=== PATIENT | female | born 1980 | race African-American/Black ===

== ENCOUNTER 2016-03-21 21:03 | Emergency (ER) | payer OTHER ==
[~2016-03-21] VITALS: Ht 152.4 cm; Wt 63.5 kg
[~2016-03-21 21:03] MED LIST: AZIT250T6 PO; BENZ200C39 PO
[2016-03-21 21:38] VITALS: BP 156/80
[2016-03-21] MEDS ORDERED: ACETAMINOPHEN 500 MG TABLET PO ONE (22:00)
[2016-03-21] MEDS ORDERED: AMOX1TAB61 PO (22:43)
[2016-03-21] MEDS ORDERED: KETO5DRO3 EACHEYE (22:43)
[2016-03-21] MEDS ORDERED: LORA1TAB47 PO (22:43)
--- NOTE | 2016-03-21 22:43 | PHYS DOC ---
Past Medical History Past Medical History: Bronchitis Additional Past Medical Histor: GALLSTONES, chronic back pain Past Surgical History: Alcohol Use: None Drug Use: None Adult General Chief Complaint Chief Complaint: Congestion HPI HPI Patient is a 35 year old female who presents with bilateral ear pain, nasal congestion, sinus headache, bilateral eye itching, for the last 1 week. Patient denies any fever. Review of Systems Review of Systems Constitutional: See history of present illness Eyes: eye itching HENT: Nasal congestion Respiratory: Denies cough or shortness of breath [] Cardiovascular: No additional information not addressed in HPI [] GI: Denies abdominal pain, nausea, vomiting, bloody stools or diarrhea [] : Denies dysuria or hematuria [] Musculoskeletal: Denies back pain or joint pain [] Integument: Denies rash or skin lesions [] Neurologic: Frontal headache Endocrine: Denies polyuria or polydipsia [] Current Medications Current Medications Current Medications Medications (Trade) Dose Ordered Sig/Alfie Start Time Stop Time Status Last Admin Dose Admin Acetaminophen (Tylenol) 1,000 mg 1X ONCE 03/21/16 22:00 03/21/16 22:01 Cancel Allergies Allergies Allergies Coded Allergies Type Severity Reaction Last Updated Verified Sulfa (Sulfonamide Antibiotics) Adverse Reaction Mild nausea and vomiting 09/07 Yes Physical Exam Physical Exam Constitutional: Well developed, well nourished, no acute distress, non-toxic appearance. [] HENT: Normocephalic, atraumatic, bilateral external ears normal, oropharynx moist, no oral exudates, Patient sounds congested nasally. Bilateral nasal turbinates are boggy and erythematous. Mild frontal and maxillary sinus tenderness. Bilateral TM with small amount of clear fluid no erythema Eyes: PERRLA, EOMI, bilateral conjunctiva are mildly injected Neck: Normal range of motion, no tenderness, supple, no stridor. [] Cardiovascular:Heart rate regular rhythm, no murmur [] Lungs & Thorax: Bilateral breath sounds clear to auscultation [] Abdomen: Bowel sounds normal, soft, no tenderness, no masses, no pulsatile masses. [] Skin: Warm, dry, no erythema, no rash. [] Back: No tenderness, no CVA tenderness. [] Extremities: No tenderness, no cyanosis, no clubbing, ROM intact, no edema. [] Neurologic: Alert and oriented X 3, normal motor function, normal sensory function, no focal deficits noted. [] Psychologic: Affect normal, judgement normal, mood normal. [] Current Patient Data Vital Signs Vital Signs Date Time Temp Pulse Resp B/P Pulse Ox O2 Delivery O2 Flow Rate FiO2 03/21/16 21:38 98.6 80 16 100 Room Air 98.6 EKG EKG [] Radiology/Procedures Radiology/Procedures [] Course & Med Decision Making Course & Med Decision Making Pertinent Labs and Imaging studies reviewed. (See chart for details) Patient is in the ED with acute sinusitis, allergic conjunctivitis. Discharged with Augmentin for 10 days, discharged with zaditor for allergic conjunctivitis. Tylenol/Motrin recommended for pain or fever. Alcz-[id number]-[id number] decongestants also recommended. Follow-up with PCP in one week. Dragon Disclaimer Dragon Disclaimer This electronic medical record was generated, in whole or in part, using a voice recognition dictation system. Departure Departure Impression: Primary Impression: Acute sinusitis Additional Impression: Allergic conjunctivitis Disposition: 01 HOME, SELF-CARE Condition: STABLE Referrals: NO PCP (PCP) Follow-up with your own doctor in one week Patient Instructions: Allergic Conjunctivitis, Sinusitis Additional Instructions: You were seen for acute sinusitis and allergic conjunctivitis. Take over-the- counter decongestant especially the ones for allergies like Claritin-D. Complete your prescription antibiotics. Use the eyedrops prescription as prescribed. Follow-up with your own doctor in one week. Scripts Loratadine/Pseudoephedrine (Claritin-D 12 Hour Tablet)1 Each Tab.er.12h1 Tab PO BID #20 TAB Prov:MARILY FINLEY [employer] SUPERINTENDENT 03/21/16 Ketotifen Fumarate (Zaditor)5 Ml Drops1 Drop EACHEYE BID #5 ML Prov:MUTMARILY JOSHI WOODS SUPERINTENDENT 03/21/16 Amoxicillin/Potassium Clav (Augmentin 875-125 Tablet)1 Each Tablet1 Tab PO BID # 20 TAB Prov:MARILY FINLEY [employer] SUPERINTENDENT 03/21/16 Problem Qualifiers Primary Impression: Acute sinusitis Sinusitis location: unspecified location Recurrence: non-recurrent Qualified Code: J01.90 - Acute sinusitis, unspecified Additional Impression: Allergic conjunctivitis Laterality: bilateral Qualified Code: H10.13 - Acute atopic conjunctivitis, bilateral MUTUNGMARILY Marie WO[employer]S SUPERINTENDENT Mar 21, 2016 22:43
== END 2016-03-21 22:50 | disposition home or self-care (01) ==
LOC: ER 21:03
DX: J01.90 Acute sinusitis, unspecified (principal); H10.13 Acute atopic conjunctivitis, bilateral; G89.29 Other chronic pain; Z88.2 Allergy status to sulfonamides
CPT/HCPCS: 99283

== ENCOUNTER 2016-05-02 14:48 | Emergency (ER) | payer OTHER ==
[~2016-05-02] VITALS: Ht 152.4 cm; Wt 61.2 kg
[~2016-05-02 14:48] MED LIST changes: +AMOX1TAB61 PO; +KETO5DRO3 EACHEYE; +LORA1TAB47 PO
[2016-05-02 15:28] VITALS: BP 113/71
[2016-05-02] MEDS ORDERED: HYDR-971 PO (16:01)
[2016-05-02] MEDS ORDERED: DIAZ5TAB PO (16:01)
[2016-05-02] MEDS ORDERED: METH4TAB2 PO (16:01)
[2016-05-02] MEDS ORDERED: NAPR500T3 PO (16:01)
--- NOTE | 2016-05-02 16:01 | PHYS DOC ---
Past Medical History Past Medical History: Bronchitis Additional Past Medical Histor: GALLSTONES, chronic back pain Past Surgical History: No Surgical History Alcohol Use: None Drug Use: None Adult General Chief Complaint Chief Complaint: LOWER BACK PAIN OR INJURY HPI HPI Patient is a 35 year old female with history of bronchitis who presents with bilateral low back pain moderate in nature radiating to the upper and lower back that began a couple days ago. 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 Patient denies any actual trauma. Patient states she could've pulled a muscle. Patient states she has tried taking naproxen/ibuprofen and Flexeril with no relief. Patient states the pain is radiated to bilateral lower extremities. Patient denies any numbness or tingling to bilateral lower extremities. Denies any loss of bowel bladder function. Review of Systems Review of Systems Constitutional: Denies fever or chills [] : Denies dysuria or hematuria [] Musculoskeletal: Bilateral low back pain Integument: Denies rash or skin lesions [] Neurologic: Denies headache, focal weakness or sensory changes [] Endocrine: Denies polyuria or polydipsia [] Allergies Allergies Allergies Coded Allergies Type Severity Reaction Last Updated Verified Sulfa (Sulfonamide Antibiotics) Adverse Reaction Mild nausea and vomiting 09/07 Yes Physical Exam Physical Exam Constitutional: Well developed, well nourished, no acute distress, non-toxic appearance. [] HENT: Normocephalic, atraumatic, bilateral external ears normal, oropharynx moist, no oral exudates, nose normal. [] Eyes: PERRLA, EOMI, conjunctiva normal, no discharge. [] Skin: Warm, dry, no erythema, no rash. [] Back: Diffuse paraspinal muscle tenderness to bilateral lumbar region, no midline tenderness, no CVA tenderness. [] Extremities: No tenderness, no cyanosis, no clubbing, ROM intact, no edema. [] Neurologic: Alert and oriented X 3, normal motor function, normal sensory function, no focal deficits noted. [] Psychologic: Affect normal, judgement normal, mood normal. [] Current Patient Data Vital Signs Vital Signs Date Time Temp Pulse Resp B/P Pulse Ox O2 Delivery O2 Flow Rate FiO2 05/02/16 15:28 97.5 95 20 100 Room Air 97.5 EKG EKG [] Radiology/Procedures Radiology/Procedures [] Course & Med Decision Making Course & Med Decision Making Pertinent Labs and Imaging studies reviewed. (See chart for details) Patient is in the ED with bilateral low back pain, she works as a [employer] and states has been lifting people. We talked about benefits and risk of x-rays of the lumbar spine. Patient is okay with pain management for now. She states she can follow-up with her own PCP in one week if pain continues. She is currently on naproxen and Flexeril with no relief. I recommend heat to the back. Dragon Disclaimer Dragon Disclaimer This electronic medical record was generated, in whole or in part, using a voice recognition dictation system. Departure Departure Impression: Primary Impression: Back pain Additional Impression: Lumbosacral strain Disposition: HOME, SELF-CARE Condition: STABLE Referrals: NO PCP (PCP) Please follow-up with your own doctor in one week Patient Instructions: Lumbosacral Strain Additional Instructions: You were seen for lumbosacral strain. We recommend you apply heat or ice to the lumbar spine. Follow-up with your doctor in the next 7 days. Come back to the ED at any point symptoms worsen especially if you develop any loss of bowel bladder function. Scripts Naproxen 500 Mg Tablet1 Tab PO BID #60 TAB Ref 1 Prov:MARILY FINLEY APRN 05/02/16 Methylprednisolone (Medrol)4 Mg Tab.ds.pk1 Pkg PO UD #1 PKG Prov:MARILY FINLEY APRN 05/02/16 Diazepam (Valium)5 Mg Tablet5 Mg PO TID PRN MUSCLE SPASMS #14 TAB Prov:MARILY FINLEY APRN 05/02/16 Hydrocodone/Apap 5-325 ([place] 5-325 Tablet)1 Each Tablet1-2 Tab PO Q4-6HRS #14 TAB Prov:MARILY FINLEY APRN 05/02/16 Problem Qualifiers Primary Impression: Back pain Back pain location: low back pain Chronicity: acute Back pain laterality: bilateral Sciatica presence: with sciatica Sciatica laterality: bilateral sciatica Qualified Code: M54.42 - Lumbago with sciatica, left side Additional Impression: Lumbosacral strain Encounter type: initial encounter Qualified Code: S39.012A - Strain of muscle, fascia and tendon of lower back, initial encounter MARILY FINLEY APRN May 02, 2016 16:01
== END 2016-05-02 16:10 | disposition home or self-care (01) ==
LOC: ER 14:48
DX: S39.012A Strain of muscle, fascia and tendon of lower back, initial encounter (principal); G89.29 Other chronic pain; Z88.2 Allergy status to sulfonamides; X58.XXXA Exposure to other specified factors, initial encounter; Y93.89 Activity, other specified; Y99.8 Other external cause status; Y92.89 Other specified places as the place of occurrence of the external cause
CPT/HCPCS: 99283

== ENCOUNTER 2016-08-20 19:45 | Emergency (ER) | payer SELFPAY ==
[~2016-08-20] VITALS: Ht 152.4 cm; Wt 68.0 kg
[~2016-08-20 19:45] MED LIST changes: -BENZ200C39 PO; +BENZ200C47 PO; +DIAZ5TAB PO; +HYDR-971 PO; +METH4TAB2 PO; +NAPR500T3 PO
[2016-08-20 20:24] VITALS: BP 135/80
[2016-08-20] MEDS ORDERED: BENZ100C PO (20:47)
[2016-08-20] MEDS ORDERED: PROAIR HFA8.5 GM INH (20:47)
[2016-08-20] MEDS ORDERED: NAPR500T PO (20:47)
[2016-08-20] MEDS ORDERED: CYCL10TA2 PO (20:47)
--- NOTE | 2016-08-20 20:48 | PHYS DOC ---
Past Medical History Past Medical History: Bronchitis Additional Past Medical Histor: GALLSTONES, chronic back pain Past Surgical History: No Surgical History Alcohol Use: None Drug Use: None Adult General Chief Complaint Chief Complaint: Congestion HPI HPI Patient is a 36 year old female presents to the emergency department with a month history of cough. She states this is causing her muscle spasms. She reports no fever. She does state she has chronic bronchitis. Review of Systems Review of Systems Constitutional: Denies fever or chills [] Eyes: Denies change in visual acuity, redness, or eye pain [] HENT: Denies nasal congestion or sore throat [] Respiratory: Cough, no wheezing, no shortness of breath Cardiovascular: No additional information not addressed in HPI [] GI: Denies abdominal pain, nausea, vomiting, bloody stools or diarrhea [] : Denies dysuria or hematuria [] Musculoskeletal: Muscle spasm Integument: Denies rash or skin lesions [] Neurologic: Denies headache, focal weakness or sensory changes [] Endocrine: Denies polyuria or polydipsia [] Allergies Allergies Allergies Coded Allergies Type Severity Reaction Last Updated Verified Sulfa (Sulfonamide Antibiotics) Adverse Reaction Mild nausea and vomiting 09/07 Yes Physical Exam Physical Exam Constitutional: Well developed, well nourished, no acute distress, non-toxic appearance. [] HENT: Normocephalic, atraumatic, bilateral external ears normal, oropharynx moist, no oral exudates, nose normal. [] Eyes: PERRLA, EOMI, conjunctiva normal, no discharge. [] Neck: Normal range of motion, no tenderness, supple, no stridor. [] Cardiovascular:Heart rate regular rhythm, no murmur [] Lungs & Thorax: Breath sounds diminished Abdomen: Bowel sounds normal, soft, no tenderness, no masses, no pulsatile masses. [] Skin: Warm, dry, no erythema, no rash. [] Back: Diffuse muscle tenderness no midline tenderness. Extremities: No tenderness, no cyanosis, no clubbing, ROM intact, no edema. [] Neurologic: Alert and oriented X 3, normal motor function, normal sensory function, no focal deficits noted. [] Psychologic: Affect normal, judgement normal, mood normal. [] Current Patient Data Vital Signs Vital Signs Date Time Temp Pulse Resp B/P (MAP) Pulse Ox O2 Delivery O2 Flow Rate FiO2 08/20/16 20:24 98.1 89 16 100 Room Air 98.1 EKG EKG [] Radiology/Procedures Radiology/Procedures [] Course & Med Decision Making Course & Med Decision Making Pertinent Labs and Imaging studies reviewed. (See chart for details) [] Dragon Disclaimer Dragon Disclaimer This electronic medical record was generated, in whole or in part, using a voice recognition dictation system. Departure Departure Impression: Primary Impression: Cough Additional Impression: Muscle spasm Disposition: 01 HOME, SELF-CARE Condition: STABLE Referrals: NO PCP (PCP) Patient Instructions: Cough, Adult, Muscle Cramps, Hebg-[id number] Scripts Albuterol Sulfate (PROAIR HFA INHALER) 8.5 Gm Hfa.aer.ad 1 PUFF INH PRN Q6HRS Y for SHORTNESS OF BREATH, #1 INHALER 0 Refills Prov: STEVEN ZAIDI APRN 08/20/16 Benzonatate (TESSALON PERLE) 100 Mg Capsule 100 MG PO TID Y for COUGH, #30 CAP Prov: STEVEN ZAIDI APRN 08/20/16 Cyclobenzaprine Hcl (CYCLOBENZAPRINE HCL) 10 Mg Tablet 1 TAB PO TID, #30 TAB Prov: STEVEN ZAIDI APRN 08/20/16 Naproxen (NAPROSYN) 500 Mg Tablet 500 MG PO BID Y for PAIN, #20 TAB Prov: STEVEN ZAIDI APRN 08/20/16 Problem Qualifiers STEVEN ZAIDI APRN Aug 20, 2016 20:48
== END 2016-08-20 21:00 | disposition home or self-care (01) ==
LOC: ER 19:45
DX: R05 Cough (principal); M62.838 Other muscle spasm; G89.29 Other chronic pain; Z88.2 Allergy status to sulfonamides
CPT/HCPCS: 99283

== ENCOUNTER 2016-09-14 14:49 | Emergency (ER) | payer SELFPAY ==
[~2016-09-14] VITALS: Ht 152.4 cm; Wt 68.0 kg
[~2016-09-14 14:49] MED LIST changes: +BENZ100C PO; +CYCL10TA2 PO; +NAPR500T PO; +PROAIR HFA8.5 GM INH
[2016-09-14] MEDS ORDERED: ACETAMINOPHEN 500 MG TABLET PO ONE (15:15)
[2016-09-14] MEDS ORDERED: ONDANSETRON ODT 4 MG TAB.RAPDIS. PO ONE (15:15)
[2016-09-14] MEDS ORDERED: ONDA4TAB10 SL (15:27)
--- NOTE | 2016-09-14 15:28 | PHYS DOC ---
Past Medical History Past Medical History: Bronchitis Additional Past Medical Histor: GALLSTONES, chronic back pain Past Surgical History: No Surgical History Alcohol Use: None Drug Use: None Adult General Chief Complaint Chief Complaint: HEADACHE HPI HPI Patient is a 36 year old female with no significant medical history who presents today complaining of moderate right frontal headache that began prior to coming to the ED after she hit her head on a pole at work. Patient denies any loss of consciousness. Patient is also complaining of photosensitivity and dizziness. Denies any nausea or vomiting. Review of Systems Review of Systems Constitutional: Denies fever or chills [] Eyes: Denies change in visual acuity, redness, or eye pain [] HENT: Denies nasal congestion or sore throat [] Respiratory: Denies cough or shortness of breath [] Cardiovascular: No additional information not addressed in HPI [] GI: Denies abdominal pain, nausea, vomiting, bloody stools or diarrhea [] : Denies dysuria or hematuria [] Musculoskeletal: Denies back pain or joint pain [] Integument: Denies rash or skin lesions [] Neurologic: Dizziness and headache Current Medications Current Medications Current Medications Medications (Trade) Dose Ordered Sig/Alfie Start Time Stop Time Status Last Admin Dose Admin Acetaminophen (Tylenol) 1,000 mg 1X ONCE 09/14/16 15:15 09/14/16 15:19 DC 09/14/16 15:32 1,000 MG Ondansetron HCl (Zofran Odt) 4 mg 1X ONCE 09/14/16 15:15 09/14/16 15:19 DC 09/14/16 15:32 4 MG Allergies Allergies Allergies Coded Allergies Type Severity Reaction Last Updated Verified Sulfa (Sulfonamide Antibiotics) Adverse Reaction Mild nausea and vomiting 09/07 Yes Physical Exam Physical Exam Constitutional: Well developed, well nourished, no acute distress, non-toxic appearance. [] HENT: Normocephalic, atraumatic, bilateral external ears normal, oropharynx moist, no oral exudates, nose normal. [] Eyes: PERRLA, EOMI, conjunctiva normal, no discharge. [] Neck: Normal range of motion, no tenderness, supple, no stridor. [] Cardiovascular:Heart rate regular rhythm, no murmur [] Lungs & Thorax: Bilateral breath sounds clear to auscultation [] Abdomen: Bowel sounds normal, soft, no tenderness, no masses, no pulsatile masses. [] Skin: Warm, dry, no erythema, no rash. [] Back: No tenderness, no CVA tenderness. [] Extremities: No tenderness, no cyanosis, no clubbing, ROM intact, no edema. [] Neurologic: Alert and oriented X 3, normal motor function, normal sensory function, no focal deficits noted. Cranial nerves II through XII intact Psychologic: Affect normal, judgement normal, mood normal. [] Current Patient Data Vital Signs Vital Signs Date Time Temp Pulse Resp B/P (MAP) Pulse Ox O2 Delivery O2 Flow Rate FiO2 09/14/16 15:36 98.6 100 20 98 Room Air 98.6 Lab Values Laboratory Tests Test 09/14/16 15:22 POC Urine HCG, Qualitative Hcg negative (Negative) EKG EKG [] Radiology/Procedures Radiology/Procedures []PROCEDURE: CT HEAD WO CONTRAST CT of the head without contrast, 09/14/2016: History: Head trauma The ventricles are within normal limits in size. There is no shift of the midline structures. There is no evidence of acute intracranial hemorrhage or mass effect. IMPRESSION: No acute intracranial abnormality is detected. PQRS Compliance Statement: One or more of the following individualized dose reduction techniques were utilized for this examination: 1. Automated exposure control 2. Adjustment of the mA and/or kV according to patient size 3. Use of iterative reconstruction technique DICTATED and SIGNED BY: NANDA LOPEZ MD DATE: 09/14/16 1638 CC: MARILY FINLEY APRN; NO PCP; NON,STAFF ~ Course & Med Decision Making Course & Med Decision Making Pertinent Labs and Imaging studies reviewed. (See chart for details) This is a 36-year-old female patient who presents today with right forehead contusion after hitting her head on a pole at work. Patient is also complaining of photosensitivity and dizziness. There was no loss of consciousness during the injury. Patient is alert and oriented 3. Spoke to patient and significant other about the benefits and risk of CTs of the head. Patient herself stated she wants to go home and sleep then started complaining we did not do a CT of the head because no one witnessed her pass out. I ordered Ct of the head ordered which was negative. She was discharged with Tylenol and Zofran. Provided return precautions including the need to return to the ED if symptoms worsen. Dragon Disclaimer Dragon Disclaimer This electronic medical record was generated, in whole or in part, using a voice recognition dictation system. Departure Departure Impression: Primary Impression: Forehead contusion Additional Impression: Concussion Disposition: 01 HOME, SELF-CARE Condition: STABLE Referrals: NO PCP (PCP) Follow-up with your doctor in 3-7 days Patient Instructions: Concussion and Brain Injury, Contusion Additional Instructions: You were seen in the ED with forehead contusion and concussion symptoms. This symptoms are not unusual for your type of injury. Apply ice to the affected area , take Tylenol for pain. Avoid ibuprofen because it is a blood thinner, avoid any narcotics. Monitor yourself, return to the ED if symptoms worsen, especially if you have uncontrolled nausea or vomiting, if you have excessive sleepiness or confusion. Follow-up with your doctor in the next 7 days. Scripts Ondansetron (ZOFRAN ODT) 4 Mg Tab.rapdis 1 TAB SL Q8HRS, #15 TAB Prov: MARILY FINLEY APRN 09/14/16 Problem Qualifiers Primary Impression: Forehead contusion Encounter type: initial encounter Qualified Codes: S00.83XA - Contusion of other part of head, initial encounter Additional Impression: Concussion Encounter type: initial encounter Loss of consciousness presence/duration: without LOC Qualified Codes: S06.0X0A - Concussion without loss of consciousness, initial encounter MARILY FINLEY APRN Sep 14, 2016 15:28
[2016-09-14 15:36] VITALS: BP 145/73
--- NOTE | 2016-09-14 16:42 | RAD ---
CT of the head without contrast, 09/14/2016: History: Head trauma The ventricles are within normal limits in size. There is no shift of the midline structures. There is no evidence of acute intracranial hemorrhage or mass effect. IMPRESSION: No acute intracranial abnormality is detected. PQRS Compliance Statement: One or more of the following individualized dose reduction techniques were utilized for this examination: 1. Automated exposure control 2. Adjustment of the mA and/or kV according to patient size 3. Use of iterative reconstruction technique
== END 2016-09-14 16:53 | disposition home or self-care (01) ==
LOC: ER 14:49
DX: S06.0X0A Concussion without loss of consciousness, initial encounter (principal); S00.83XA Contusion of other part of head, initial encounter; G89.29 Other chronic pain; Z88.2 Allergy status to sulfonamides; W22.8XXA Striking against or struck by other objects, initial encounter; Y93.89 Activity, other specified; Y92.69 Other specified industrial and construction area as the place of occurrence of the external cause; Y99.8 Other external cause status
CPT/HCPCS: 70450; 81025; 99284; Q0162